=== PATIENT | female | born 1980 | race Caucasian/White ===

== ENCOUNTER 2018-01-25 01:57 | Emergency (ER) | payer OTHER, SELFPAY ==
--- NOTE | 2018-01-25 01:58 | ED_ITS ---
HPI - Abdominal Pain General Chief Complaint: Urogenital-Female Stated Complaint: severe abdominal/pelvic pain Time Seen by Provider: 01/25/18 01:58 Source: patient Mode of arrival: ambulatory Limitations: no limitations History of Present Illness HPI narrative: Otherwise healthy 37-year-old female here for evaluation of abdominal pain. Patient states that it started approximately 36 hr ago. Was a fairly sudden onset but then essentially gradually gotten worse. Some nausea but no vomiting. Some constipation. No vaginal bleeding. She states that her last menstrual cycle was in December. She is sexually active. She states she is not concerned about sexually transmitted diseases. Is not having any vaginal bleeding. Has never had any abdominal surgeries in the past. She states she initially thought this was a urinary tract infection however symptoms have been worsening. She states she was going to wait to go to the walk-in clinic tomorrow morning however woke up this evening with worsening pain that is now moving upper abdomen so she thought she could come in to be evaluated. Related Data Previous Rx's Medication Instructions Recorded cephalexin [Keflex] 500 mg PO BID 3 Days #6 cap 01/25/18 phenazopyridine [Pyridium] 100 mg PO TID PRN 2 Days #6 tab 01/25/18 Review of Systems Constitutional Denies fever(s) Cardiovascular Denies chest pain and Denies dyspnea Respiratory Denies dyspnea Gastrointestinal Gastrointestinal: Reports abdominal pain, Denies change in bowel habits, Reports constipation, Reports nausea and Denies vomiting Genitourinary Reports pelvic pain, Denies flank pain, Denies urinary hesitancy, Denies urinary urgency and Denies vaginal discharge Integumentary/Breasts Denies lesions and Denies rash Hematologic/Lymphatic Denies easy bleeding and Denies easy bruising FORMERLY [facility] Medical History Hypertension (Acute) Surgical History No pertinent past surgical history (Acute) Social History Smoking Status: Current every day smoker Exam Initial Vital Signs Initial Vital Signs: Vital Signs Temperature 98.2 F 01/25/18 02:07 Pulse Rate 102 H 01/25/18 02:07 Respiratory Rate 18 01/25/18 02:07 Blood Pressure 158/111 H 01/25/18 02:07 Pulse Oximetry 100 01/25/18 02:07 Const General: cooperative, healthy appearing, comfortable, well developed, well groomed and No acute distress Orientation: alert, awake and oriented x3 HENMT Head: normal to inspection and normocephalic Resp Effort & Inspection: normal respiratory effort Auscultation: clear to auscultation bilaterally Cardio Rate: tachycardic Rhythm: regular rhythm Pulses: radial pulses present GI Inspection: non-distended Palpation: soft, No firm and tender (Periumbilical suprapubic) Back/Spine/Pelvis Back: No CVA tenderness Skin Lesions: no lesions Rashes: no rashes Neuro General: alert, awake and oriented x3 Extrem General: normal to inspection and capillary refill normal Psych Appearance: grossly normal and well kempt Course Orders Ordered: ED Orders 01/25/18 02:08 Urine Culture Stat Urine Microscopic Stat Discontinued Medications Cephalexin HCl (Keflex) 500 mg PO NOW ONE Stop: 01/25/18 02:46 Vital Signs - 8 hr 01/25/18 02:07 Temperature 98.2 F Pulse Rate 102 H Respiratory Rate 18 Blood Pressure 158/111 H Pulse Oximetry 100 MDM - Abdominal Pain Lab Data Attestation: I reviewed the patient's lab results. Lab Results 01/25/18 Range/Units 02:08 Urine RBC None seen (0-5/HPF) Urine WBC 10-30/hpf H (0-5/HPF) Ur Squamous Epith Cells 1-5 /hpf Urine Bacteria Many (>30) H (None) Urine Mucus 2+ H (Negative) Ur Culture Indicated? Specimen cultured Micro UA Comment Not Reportable Point of care testing: Point of Care Testing Test Results Negative Urine Dip Bedside Urine Glucose Negative Bedside Urine Bilirubin + 1 Bedside Urine Ketone - Negative Urine Specific [place] 1.025 Bedside Urine Occult Blood - Negative Bedside Urine pH 6.0 Bedside Urine Protein - Negative Bedside Urine Urobilinogen 1+ 2mg Bedside Urine Nitrite + Positive Bedside Urine Leukocytes +/- 15 Esterase MDM Narrative Medical decision making narrative: Relatively benign abdominal exam. test negative. Urinalysis nitrite positive fairly consistent for a urinary tract infection. Patient was given the 1st dose of Keflex here in the emergency department was sent home with a prescription for this. We also sent home with a prescription for Pyridium. Will hold on further workup for now. Patient was given return precautions. She expressed understanding and agreement with plan Discharge Plan Departure Patient Disposition: Home Clinical Impression: Urinary tract infection Instructions: DI for Urinary Tract Infection (UTI) Activity Restrictions/Additional Instructions: Make sure you are increase your fluid intake. Expect your urine to be a bright yellow color secondary to the peridium like we discussed. Take the antibiotics as directed. Return to the emergency department for any new or worsening symptoms Prescriptions: New phenazopyridine [Pyridium] 100 mg tablet 100 mg PO TID PRN (Reason: pain) 2 Days Qty: 6 RF: 0 cephalexin [Keflex] 500 mg capsule 500 mg PO BID 3 Days Qty: 6 RF: 0
[2018-01-25 02:07] VITALS: BP 158/111; PULSE 102; RESP 18; TEMP 36.8; O2SAT 100; BMI 35.2
[2018-01-25 02:26] LABS: RBC Urine None Seen (0-5/HPF)
[2018-01-25 02:34] LABS: Bacteria Urine Many (>30); Squamous Epithelial Cell Urine 1-5 /HPF; WBC Urine 10-30/HPF (0-5/HPF)
[2018-01-25 02:35] LABS: Culture Indicated Urine Specimen Cultured; Mucus Urine 2+ (Negative)
[2018-01-25] MEDS: cephALEXin 250 MG CAPSULE 500 MG PO (02:57)
[2018-01-25 03:12] VITALS: BP 138/93; PULSE 94; RESP 18; O2SAT 100
--- NOTE | 2018-01-28 16:06 | PC.NURSE ---
left message to call back if any questions.
== END 2018-01-25 03:20 | disposition home or self-care (01) ==
PROVIDERS: Emergency Provider Emergency Medicine; PCP Physician Assistant Medical
DX: N39.0 Urinary tract infection, site not specified (principal)
CPT/HCPCS: 81003; 81015; 81025; 87086; 99282